=== PATIENT | female | born 1960 | race Caucasian/White ===

== ENCOUNTER 2019-01-27 13:42 | Inpatient (IN) | payer OTHER ==
[2019-01-27 15:21] VITALS: BMI 22.6
--- NOTE | 2019-01-27 16:31 | HP ---
COWS - Scale Resting Pulse: 0= [place] 80 or Below Sweatin= Chills/Flushing Restless Observation: 1= Difficult to Sit Still Pupil Size: 1= Pupils >than Normal Bone or Joint Aches: 2= Severe Diffuse Aches Runny Nose/ Eye Tearin= Runny Nose/Eyes GI Upset > 30mins: 2= Nausea/Diarrhea Tremor Observation: 2= Slight Tremor Visible Yawning Observation: 2= >3x During Session Anxiety or Irritability: 2=Irritable/Anxious Goose Flesh Skin: 0=Smooth Skin COWS Score: 15 CIWA Score - Admission Criteria [facility]AS Guidelines: Admission for Medically Managed Detox: Requires at least one of the followin. CIWA greater than 12 2. Seizures within the past 24 hours 3. Delirium tremens within the past 24 hours 4. Hallucinations within the past 24 hours 5. Acute intervention needed for co occurring medical disorder 6. Acute intervention needed for co occurring psychiatric disorder 7. Severe withdrawal that cannot be handled at a lower level of care (continued vomiting, continued diarrhea, abnormal vital signs) requiring intravenous medication and/or fluids 8. Admission ROS [facility] Chief Complaint: i need help to stop using heroin,on xanax prescription form i stop Allergies/Adverse Reactions: Allergies Allergy/AdvReac Type Severity Reaction Status Date / Time No Known Allergies Allergy Verified 01/27/19 17:57 History of Present Illness: this 58 years old female with heroin dependence,also on xanax 0.5 mg po bid prescription on i stop,previous admission in the past,last 10/14/16 to 10/18/16 keep relapsing hypertension,type 2 dm on diet control nicotine dependence 3 cigarette weight loss no significant period of sobriety anxiety plan for out patient program hepatitis c treated asthma Exam Limitations: No Limitations - Ebola screening Have you traveled outside of the country in the last 21 days: No (N) Have you had contact with anyone from an Ebola affected area: No Have you been sick,other than usual withdrawal symptoms: No Do you have a fever: No - Review of Systems Constitutional: Chills, Loss of Appetite, Malaise, Night Sweats, Changes in sleep, Weakness, Unintentional Wgt. Loss EENT: reports: Tearing, Nose Congestion Respiratory: reports: No Symptoms reported Cardiac: reports: No Symptoms Reported GI: reports: Diarrhea, Nausea, Poor Appetite, Abdominal cramping : reports: No Symptoms Reported Musculoskeletal: reports: Back Pain, Joint Pain, Muscle Pain, Joint Stiffness Integumentary: reports: Dryness Endocrine: reports: No Symptoms Reported Hematology: reports: No Symptoms Reported Psychiatric: reports: No Sypmtoms Reported, Judgement Intact, Mood/Affect Appropiate, Orientated x3, Agitated, Anxious, other (anxiety) Other Systems: Reviewed and Negative Patient History - Patient Medical History Hx Anemia: No Hx Asthma: Yes (on albuterol inhaler) Hx Chronic Obstructive Pulmonary Disease (COPD): No Hx Cancer: No Hx Cardiac Disorders: No Hx Congestive Heart Failure: No Hx Hypertension: No Hx Hypercholesterolemia: No Hx Pacemaker: No HX Cerebrovascular Accident: No Hx Seizures: No Hx Dementia: No Hx Diabetes: No Hx Gastrointestinal Disorders: No Hx Liver Disease: No Hx Genitourinary Disorders: No Hx Sexually Transmitted Disorders: No Hx Renal Disease (ESRD): No Hx Thyroid Disease: No Hx Human Immunodeficiency Virus (HIV): No (negative [id number] ) Hx Hepatitis C: Yes (treated) Hx Depression: Yes (anxiety) Hx Suicide Attempt: No Hx Bipolar Disorder: No Hx Schizophrenia: No Other Medical History: no suicidal,no homicidal - Patient Surgical History Past Surgical History: Yes Hx Neurologic Surgery: No Hx Cataract Extraction: No Hx Cardiac Surgery: No Hx Lung Surgery: No Hx Breast Surgery: No Hx Breast Biopsy: No Hx Abdominal Surgery: No Hx Appendectomy: No Hx Cholecystectomy: No Hx Genitourinary Surgery: No Hx Section: Yes (x 3,last 27,s/p hysterectomy in 2017 at [facility]) Hx Orthopedic Surgery: No Hx Hysterectomy: Yes (2009 for fibroid) Anesthesia Reaction: No - PPD History Previous Implant?: Yes Documented Results: Negative w/o proof Implanted On Prior R Admission?: Yes Date: 10/17/16 Results: 0 mm PPD to be Administered?: Yes - Reproductive History Patient is a Female of Child Bearing Age (11 -55 yrs old): No Last Menstrual Period: 10/14/10 Patient : No - Smoking Cessation Smoking history: Current every day smoker Have you smoked in the past 12 months: Yes Aproximately how many cigarettes per day: 3 Cigars Per Day: 0 Hx Chewing Tobacco Use: No Initiated information on smoking cessation: Yes 'Breaking Loose' booklet given: 01/27/19 - Substance & Tx. History Hx Alcohol Use: No Hx Substance Use: Yes Substance Use Type: Heroin, Tranquilizers Hx Substance Use Treatment: Yes ([facility] 12/14/15 to 10/18/16) - Substances Abused Heroin Route: Inhalation Frequency: Daily Amount used: 2 bags Age of first use: 27 Date of Last Use: 01/27/19 Alprazolam (Xanax) Route: Oral Frequency: Daily Amount used: 1 mg Age of first use: 58 Date of Last Use: 01/27/19 Family Disease History - Family Disease History Family Disease History: Heart Disease: Mother (,cva), Other: Father ( alcohol,), Mother Admission Physical Exam S - Vital Signs Vital Signs: Vital Signs - 24 hr 01/27/19 15:19 Temperature 98.7 F Pulse Rate 71 Respiratory 18 Rate Blood Pressure 143/88 - Physical General Appearance: Yes: Moderate Distress, Tremorous, Irritable, Sweating, Anxious HEENTM: Yes: Normal ENT Inspection, ZENA[place], Pharynx Normal Respiratory: Yes: Lungs Clear, Normal Breath Sounds, No Respiratory Distress, Other (asthma) Neck: Yes: Within Normal Limits, Supple, Trachea in good position Breast: Yes: Breast Exam Deferred Cardiology: Yes: Within Normal Limits, Regular Rhythm, Regular Rate, S1, S2 Abdominal: Yes: Within Normal Limits, Normal Bowel Sounds, Non Tender, Flat, Soft, Surgical Scar Genitourinary: Yes: Within Normal Limits Back: Yes: Muscle Spasm Musculoskeletal: Yes: full range of Motion, Back pain, Muscle Pain Extremities: Yes: Within Normal Limits, Normal Range of Motion, Tremors Neurological: Yes: 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 NML intact, Fully Oriented, Alert, Motor Strength 5/5 Integumentary: Yes: Dry Lymphatic: Yes: Within Normal Limits - Diagnostic (1) Opioid dependence with withdrawal Current Visit: No Status: Acute Comment: DUE TO THE QUANTITY OF HEROIN USE AND SEVERITY OF WITHDRAWAL SX MODIFY METHADONE REGIMEN (2) Weight decreased Current Visit: No Status: Acute (3) Asthma Current Visit: No Status: Chronic Qualifiers: Asthma severity: moderate persistent Asthma complication type: with status asthmaticus (4) Hepatitis C Current Visit: No Status: Chronic Qualifiers: Viral hepatitis chronicity: carrier Qualified Code(s): B18.2 - Chronic viral hepatitis C Comment: SCHEDULED FOR TREATMENT (5) Nicotine dependence Current Visit: No Status: Chronic Qualifiers: Nicotine product type: cigarettes Substance use status: uncomplicated Qualified Code(s): F17.210 - Nicotine dependence, cigarettes, uncomplicated (6) Syncope Current Visit: No Status: Chronic (7) Sedative hypnotic or anxiolytic dependence Current Visit: Yes Status: Acute (8) Dehydration Current Visit: Yes Status: Acute (9) History of hysterectomy for benign disease Current Visit: Yes Status: Acute (10) History of uterine fibroid Current Visit: Yes Status: Acute Cleared for Admission [facility] - Detox or Rehab [facility] Level of Care: Medically Managed Detox Regimen/Protocol: Methadone [facility] Breath Alcohol Content Breath Alcohol Content: 0 Urine Pregancy Test - Result Urine Test Results: Negative- NO Line Present Urine Drug Screen - Results Drug Screen Negative: No Urine Drug Screen Results: OPI-Opiates, BZO-Benzodiazepines, FEN-Fentanyl Inpatient Rehab Admission - Rehab Decision to Admit Inpatient rehab admission?: No
[2019-01-27] MEDS ORDERED: hydrOXYzine PAMOATE 25 MG CAPSULE (FP) PO PRN (16:55)
[2019-01-27] MEDS ORDERED: MAG HYDROX/AL HYDROX/SIMETH 30 ML UNIT-DOSE CUP PO PRN (16:55)
[2019-01-27] MEDS ORDERED: MENTHOL/PHENOL 1 EACH UD MM PRN (16:55)
[2019-01-27] MEDS ORDERED: MAGNESIUM CITRATE 300 ML BOTTLE PO PRN (16:55)
[2019-01-27] MEDS ORDERED: MAGNESIUM HYDROX 2400MG/30ML ORAL SUSPENSION 30 ML CUP PO PRN (16:55)
[2019-01-27] MEDS ORDERED: LOPERAMIDE HCL 2 MG CAPSULE PO PRN (16:55)
[2019-01-27] MEDS ORDERED: P-EPHED 60MG/TRIPROLIDI 2.5MG TABLET PO PRN (16:55)
[2019-01-27] MEDS ORDERED: METHADONE HCL 10 MG TABLET (FOR DETOX USE ONLY) PO ONE ×2 (16:55→23:00)
[2019-01-27] MEDS ORDERED: guaiFENesin/D-METHORPHAN HB 10 ML UNIT-DOSE CUPS PO PRN (16:55)
[2019-01-27] MEDS ORDERED: ACETAMINOPHEN 325 MG TABLET (FP) PO PRN (16:55)
[2019-01-27] MEDS ORDERED: IBUPROFEN 400 MG TABLET (FP) PO PRN (16:55)
[2019-01-27] MEDS ORDERED: ALBUTEROL SO4 8 GM HFA INHALER IH PRN (16:58)
[2019-01-27] MEDS: diazePAM 5 MG TABLET PO PRN (19:33)
[2019-01-27] MEDS: MELATONIN 5 MG TABLETS PO PRN (22:39)
[2019-01-27] MEDS: THIAMINE HCL 100 MG TABLET (FP) PO SCH (22:39)
[2019-01-28] MEDS ORDERED: METHADONE HCL 10 MG TABLET (FOR DETOX USE ONLY) PO ONE (10:00)
[2019-01-28] MEDS: PRENATAL VITAMINS W/ FOLIC ACID TABLET (FP) PO SCH (10:11)
[2019-01-28 10:17] LABS: ALBUMIN 3.5 g/dl (3.4-5.0); ALK PHOS 76 U/L (45-117); ANION GAP 7 MMOL/L (8-16); BILIRUBIN,TOTAL 0.7 mg/dL (0.2-1); BLOOD UREA NITROGEN 12 mg/dL (7-18); CALCIUM 9.2 mg/dL (8.5-10.1); CHLORIDE 103 mmol/L (98-107); CO2 30 mmol/L (21-32); CREATININE 0.7 mg/dL (0.55-1.3); GLUCOSE,RANDOM 91 mg/dL (74-106); POTASSIUM 4.1 mmol/L (3.5-5.1); SGOT/AST 13 U/L (15-37); SGPT/ALT 15 U/L (13-61); SODIUM 141 mmol/L (136-145)
[2019-01-28 10:32] LABS: HEMATOCRIT 37.8 % (32.4-45.2); HEMOGLOBIN 12.3 GM/dL (10.7-15.3); MCH 26.1 pg (25.7-33.7); MCHC 32.5 g/dl (32.0-36.0); MEAN CELL VOLUME 80.1 fl (80-96); MEAN PLT VOLUME 11.2 fl (7.5-11.1); PLATELET COUNT 155 K/MM3 (134-434); RBC 4.72 M/mm3 (3.60-5.2); RDW 14.5 % (11.6-15.6); WHITE BLOOD COUNT 6.1 K/mm3 (4.0-10.0)
--- NOTE | 2019-01-28 11:37 | PN ---
BHS COWS - Scale Resting Pulse: 0= [place] 80 or Below Sweatin= Chills/Flushing Restless Observation: 0= Sits Still Pupil Size: 1= Pupils >than Normal Bone or Joint Aches: 2= Severe Diffuse Aches Runny Nose/ Eye Tearin= Nasal Congestion GI Upset > 30mins: 1= Stomach Cramp Tremor Observation of Outstretched Hands: 2= Slight Tremor Visible Yawning Observation: 1= 1-2x During Session Anxiety or Irritability: 2=Irritable/Anxious Goose Flesh Skin: 0=Smooth Skin COWS Score: 11 BHS Progress Note (SOAP) Subjective: body ache anxiety restlessness trouble sleep at night hesitate engage with peers Objective: 01/28/19 11:36 Vital Signs Temperature 97.0 F L 01/28/19 09:12 Pulse Rate 69 01/28/19 09:12 Respiratory Rate 20 01/28/19 09:12 Blood Pressure 122/75 01/28/19 09:12 O2 Sat by Pulse Oximetry (%) Laboratory Last Values WBC 6.1 K/mm3 (4.0-10.0) 01/28/19 07:00 RBC 4.72 M/mm3 (3.60-5.2) 01/28/19 07:00 Hgb 12.3 GM/dL (10.7-15.3) 01/28/19 07:00 Hct 37.8 % (32.4-45.2) 01/28/19 07:00 MCV 80.1 fl (80-96) 01/28/19 07:00 MCH 26.1 pg (25.7-33.7) 01/28/19 07:00 MCHC 32.5 g/dl (32.0-36.0) 01/28/19 07:00 RDW 14.5 % (11.6-15.6) 01/28/19 07:00 Plt Count 155 K/MM3 (134-434) D 01/28/19 07:00 MPV 11.2 fl (7.5-11.1) H 01/28/19 07:00 Sodium 141 mmol/L (136-145) 01/28/19 07:00 Potassium 4.1 mmol/L (3.5-5.1) 01/28/19 07:00 Chloride 103 mmol/L (98-107) 01/28/19 07:00 Carbon Dioxide 30 mmol/L (21-32) 01/28/19 07:00 Anion Gap 7 MMOL/L (8-16) L 01/28/19 07:00 BUN 12 mg/dL (7-18) 01/28/19 07:00 Creatinine 0.7 mg/dL (0.55-1.3) 01/28/19 07:00 Creat Clearance w eGFR > 60 (>60) 01/28/19 07:00 POC Glucometer 97 UNITS (80-120) 01/28/19 06:09 Random Glucose 91 mg/dL (74-106) 01/28/19 07:00 Calcium 9.2 mg/dL (8.5-10.1) 01/28/19 07:00 Total Bilirubin 0.7 mg/dL (0.2-1) 01/28/19 07:00 AST 13 U/L (15-37) L 01/28/19 07:00 ALT 15 U/L (13-61) 01/28/19 07:00 Alkaline Phosphatase 76 U/L (45-117) 01/28/19 07:00 Total Protein 7.0 g/dl (6.4-8.2) 01/28/19 07:00 Albumin 3.5 g/dl (3.4-5.0) 01/28/19 07:00 RPR Titer Nonreactive (NONREACTIVE) 01/28/19 07:00 lab noted Assessment: 01/28/19 11:36 opiate withdrawal sx xanax 0.5 mg po bid last filled 30 days supply on 01/24/19 Plan: continue detox patient preferred return to xanax prescriber for aftercare
[2019-01-28] MEDS: THIAMINE HCL 100 MG TABLET (FP) PO SCH (22:04)
[2019-01-28] MEDS: MELATONIN 5 MG TABLETS PO PRN (22:05)
[2019-01-29] MEDS ORDERED: METHADONE HCL 5 MG TABLET (FOR DETOX USE ONLY) PO ONE (10:00)
[2019-01-29] MEDS: diazePAM 5 MG TABLET PO PRN ×2 (10:26→22:19)
[2019-01-29] MEDS: PRENATAL VITAMINS W/ FOLIC ACID TABLET (FP) PO SCH (10:26)
--- NOTE | 2019-01-29 11:28 | PN ---
BHS COWS - Scale Resting Pulse: 0= [place] 80 or Below Sweatin= Chills/Flushing Restless Observation: 0= Sits Still Pupil Size: 1= Pupils >than Normal Bone or Joint Aches: 1= Mild Discomfort Runny Nose/ Eye Tearin= Nasal Congestion GI Upset > 30mins: 1= Stomach Cramp Tremor Observation of Outstretched Hands: 1= Tremor [place], Not Seen Yawning Observation: 1= 1-2x During Session Anxiety or Irritability: 1=Feels Anxious/Irritable Goose Flesh Skin: 0=Smooth Skin COWS Score: 8 BHS Progress Note (SOAP) Subjective: body aches tremor sweating feeling weak and low energy patient is taking xanax 0.5 mg bid daily last filled 30 days supply on 01/14/19 Objective: 01/29/19 11:29 Vital Signs Temperature 97.8 F 01/29/19 09:17 Pulse Rate 65 01/29/19 09:17 Respiratory Rate 18 01/29/19 09:17 Blood Pressure 130/89 01/29/19 09:17 O2 Sat by Pulse Oximetry (%) Laboratory Last Values WBC 6.1 K/mm3 (4.0-10.0) 01/28/19 07:00 RBC 4.72 M/mm3 (3.60-5.2) 01/28/19 07:00 Hgb 12.3 GM/dL (10.7-15.3) 01/28/19 07:00 Hct 37.8 % (32.4-45.2) 01/28/19 07:00 MCV 80.1 fl (80-96) 01/28/19 07:00 MCH 26.1 pg (25.7-33.7) 01/28/19 07:00 MCHC 32.5 g/dl (32.0-36.0) 01/28/19 07:00 RDW 14.5 % (11.6-15.6) 01/28/19 07:00 Plt Count 155 K/MM3 (134-434) D 01/28/19 07:00 MPV 11.2 fl (7.5-11.1) H 01/28/19 07:00 Sodium 141 mmol/L (136-145) 01/28/19 07:00 Potassium 4.1 mmol/L (3.5-5.1) 01/28/19 07:00 Chloride 103 mmol/L (98-107) 01/28/19 07:00 Carbon Dioxide 30 mmol/L (21-32) 01/28/19 07:00 Anion Gap 7 MMOL/L (8-16) L 01/28/19 07:00 BUN 12 mg/dL (7-18) 01/28/19 07:00 Creatinine 0.7 mg/dL (0.55-1.3) 01/28/19 07:00 Creat Clearance w eGFR > 60 (>60) 01/28/19 07:00 POC Glucometer 126 UNITS (80-120) 01/29/19 07:30 Random Glucose 91 mg/dL (74-106) 01/28/19 07:00 Calcium 9.2 mg/dL (8.5-10.1) 01/28/19 07:00 Total Bilirubin 0.7 mg/dL (0.2-1) 01/28/19 07:00 AST 13 U/L (15-37) L 01/28/19 07:00 ALT 15 U/L (13-61) 01/28/19 07:00 Alkaline Phosphatase 76 U/L (45-117) 01/28/19 07:00 Total Protein 7.0 g/dl (6.4-8.2) 01/28/19 07:00 Albumin 3.5 g/dl (3.4-5.0) 01/28/19 07:00 RPR Titer Nonreactive (NONREACTIVE) 01/28/19 07:00 lab noted Assessment: 01/29/19 11:29 opiate withdrawal sx Plan: continue detox
[2019-01-29] MEDS: OSELTAMIVIR PHOSPHATE 75 MG CAPSULE PO SCH ×2 (15:59→22:19)
[2019-01-29] MEDS: THIAMINE HCL 100 MG TABLET (FP) PO SCH (22:19)
[2019-01-29] MEDS: MELATONIN 5 MG TABLETS PO PRN (22:21)
[2019-01-30] MEDS ORDERED: METHADONE HCL 5 MG TABLET (FOR DETOX USE ONLY) PO ONE (10:00)
[2019-01-30] MEDS: PRENATAL VITAMINS W/ FOLIC ACID TABLET (FP) PO SCH (10:12)
[2019-01-30] MEDS: OSELTAMIVIR PHOSPHATE 75 MG CAPSULE PO SCH ×2 (10:12→21:56)
--- NOTE | 2019-01-30 10:36 | PN ---
BHS COWS - Scale Resting Pulse: 0= [place] 80 or Below Sweatin= Chills/Flushing Restless Observation: 0= Sits Still Pupil Size: 0= Normal to Room Light Bone or Joint Aches: 1= Mild Discomfort Runny Nose/ Eye Tearin= None GI Upset > 30mins: 1= Stomach Cramp Tremor Observation of Outstretched Hands: 1= Tremor [place], Not Seen Yawning Observation: 1= 1-2x During Session Anxiety or Irritability: 1=Feels Anxious/Irritable Goose Flesh Skin: 0=Smooth Skin COWS Score: 6 BHS Progress Note (SOAP) Subjective: stuffy nose tremor sweating no coughing temp 98.0 stomach cramping but tolerate food and fluid well Objective: 01/30/19 10:31 Vital Signs Temperature 97.9 F 01/30/19 09:34 Pulse Rate 74 01/30/19 09:34 Respiratory Rate 18 01/30/19 09:34 Blood Pressure 126/79 01/30/19 09:34 O2 Sat by Pulse Oximetry (%) Laboratory Last Values WBC 6.1 K/mm3 (4.0-10.0) 01/28/19 07:00 RBC 4.72 M/mm3 (3.60-5.2) 01/28/19 07:00 Hgb 12.3 GM/dL (10.7-15.3) 01/28/19 07:00 Hct 37.8 % (32.4-45.2) 01/28/19 07:00 MCV 80.1 fl (80-96) 01/28/19 07:00 MCH 26.1 pg (25.7-33.7) 01/28/19 07:00 MCHC 32.5 g/dl (32.0-36.0) 01/28/19 07:00 RDW 14.5 % (11.6-15.6) 01/28/19 07:00 Plt Count 155 K/MM3 (134-434) D 01/28/19 07:00 MPV 11.2 fl (7.5-11.1) H 01/28/19 07:00 Sodium 141 mmol/L (136-145) 01/28/19 07:00 Potassium 4.1 mmol/L (3.5-5.1) 01/28/19 07:00 Chloride 103 mmol/L (98-107) 01/28/19 07:00 Carbon Dioxide 30 mmol/L (21-32) 01/28/19 07:00 Anion Gap 7 MMOL/L (8-16) L 01/28/19 07:00 BUN 12 mg/dL (7-18) 01/28/19 07:00 Creatinine 0.7 mg/dL (0.55-1.3) 01/28/19 07:00 Creat Clearance w eGFR > 60 (>60) 01/28/19 07:00 POC Glucometer 126 UNITS (80-120) 01/29/19 07:30 Random Glucose 91 mg/dL (74-106) 01/28/19 07:00 Calcium 9.2 mg/dL (8.5-10.1) 01/28/19 07:00 Total Bilirubin 0.7 mg/dL (0.2-1) 01/28/19 07:00 AST 13 U/L (15-37) L 01/28/19 07:00 ALT 15 U/L (13-61) 01/28/19 07:00 Alkaline Phosphatase 76 U/L (45-117) 01/28/19 07:00 Total Protein 7.0 g/dl (6.4-8.2) 01/28/19 07:00 Albumin 3.5 g/dl (3.4-5.0) 01/28/19 07:00 RPR Titer Nonreactive (NONREACTIVE) 01/28/19 07:00 lab noted Assessment: 01/30/19 10:36 opiate withdrawal sx Plan: continue detox observed patient ambulate on hallway social with peers in day room
[2019-01-30] MEDS: diazePAM 5 MG TABLET PO PRN (13:06)
[2019-01-30] MEDS: THIAMINE HCL 100 MG TABLET (FP) PO SCH (21:56)
[2019-01-30] MEDS: MELATONIN 5 MG TABLETS PO PRN (21:57)
[2019-01-31 09:33] VITALS: BP 135/92; PULSE 80; TEMP 97.3
[2019-01-31] MEDS ORDERED: METHADONE HCL 10 MG TABLET (FOR DETOX USE ONLY) PO ONE (10:00)
[2019-01-31] MEDS: PRENATAL VITAMINS W/ FOLIC ACID TABLET (FP) PO SCH (10:07)
[2019-01-31] MEDS: OSELTAMIVIR PHOSPHATE 75 MG CAPSULE PO SCH (10:07)
--- NOTE | 2019-01-31 15:50 | DS ---
[facility] Detox Discharge Summary Admission Date: 01/27/19 Discharge Date: 01/31/19 - History Present History: Opioid Dependence Additional Comments: 58 years old female admitted on 01/27/19 for opiate withdraawal stabilization vomited x 1 refused antinausea medication insists to leave the detox unit, refused to go the the ER for further GI evaluation patient stated that she lives near the hospital does not need the transportation patient insists to walk home and return to her xanax physician for medical and mental issues Pertinent Past History: keep medication list in wallet bring in medication list to aftercare appointment - Physical Exam Results Vital Signs: Vital Signs Temperature 97.3 F L 01/31/19 09:32 Pulse Rate 80 01/31/19 09:32 Respiratory Rate 18 01/31/19 09:32 Blood Pressure 135/92 01/31/19 09:32 O2 Sat by Pulse Oximetry (%) Pertinent Admission Physical Exam Findings: opiate withdrawal sx Laboratory Last Values WBC 6.1 K/mm3 (4.0-10.0) 01/28/19 07:00 RBC 4.72 M/mm3 (3.60-5.2) 01/28/19 07:00 Hgb 12.3 GM/dL (10.7-15.3) 01/28/19 07:00 Hct 37.8 % (32.4-45.2) 01/28/19 07:00 MCV 80.1 fl (80-96) 01/28/19 07:00 MCH 26.1 pg (25.7-33.7) 01/28/19 07:00 MCHC 32.5 g/dl (32.0-36.0) 01/28/19 07:00 RDW 14.5 % (11.6-15.6) 01/28/19 07:00 Plt Count 155 K/MM3 (134-434) D 01/28/19 07:00 MPV 11.2 fl (7.5-11.1) H 01/28/19 07:00 Sodium 141 mmol/L (136-145) 01/28/19 07:00 Potassium 4.1 mmol/L (3.5-5.1) 01/28/19 07:00 Chloride 103 mmol/L (98-107) 01/28/19 07:00 Carbon Dioxide 30 mmol/L (21-32) 01/28/19 07:00 Anion Gap 7 MMOL/L (8-16) L 01/28/19 07:00 BUN 12 mg/dL (7-18) 01/28/19 07:00 Creatinine 0.7 mg/dL (0.55-1.3) 01/28/19 07:00 Creat Clearance w eGFR > 60 (>60) 01/28/19 07:00 POC Glucometer 126 UNITS (80-120) 01/29/19 07:30 Random Glucose 91 mg/dL (74-106) 01/28/19 07:00 Calcium 9.2 mg/dL (8.5-10.1) 01/28/19 07:00 Total Bilirubin 0.7 mg/dL (0.2-1) 01/28/19 07:00 AST 13 U/L (15-37) L 01/28/19 07:00 ALT 15 U/L (13-61) 01/28/19 07:00 Alkaline Phosphatase 76 U/L (45-117) 01/28/19 07:00 Total Protein 7.0 g/dl (6.4-8.2) 01/28/19 07:00 Albumin 3.5 g/dl (3.4-5.0) 01/28/19 07:00 RPR Titer Nonreactive (NONREACTIVE) 01/28/19 07:00 lab noted - Treatment Hospital Course: Detox Protocol Followed, Responded well Patient has Accepted a Rehab Referral to: as per counselor arrangement - Medication Discharge Medications: Ambulatory Orders Zolpidem Tartrate [Ambien] 10 mg PO HS 12/25/14 Albuterol Sulfate Inhaler - [Ventolin HFA Inhaler -] 0 inh IH Q4H PRN #1 cartridge 12/26/14 Pantoprazole Sodium [Protonix -] 40 mg PO DAILY #30 tablet.ec 12/26/14 Thiamine HCl [Vitamin B1 -] 100 mg PO HS #30 tablet 12/26/14 cloNIDine HCL [Catapres -] 0.1 mg PO HS #30 tablet 12/26/14 Budesonide/Formeterol Fumarate [SYMBICORT 80/4.5mcg -] 1 puff IH BID 01/28/19 Naloxone HCl [Narcan] 4 mg NS ASDIR PRN 01/28/19 Oseltamivir Phosphate [Tamiflu -] 75 mg PO BID #7 capsule 01/31/19 - Diagnosis (1) Opioid dependence with withdrawal Status: Acute (2) Weight decreased Status: Acute (3) Asthma Status: Chronic Qualifiers: Asthma severity: mild Asthma persistence: intermittent Asthma complication type: with status asthmaticus Qualified Code(s): J45.22 - Mild intermittent asthma with status asthmaticus (4) GERD (gastroesophageal reflux disease) Status: Chronic Qualifiers: Esophagitis presence: without esophagitis Qualified Code(s): K21.9 - Gastro -esophageal reflux disease without esophagitis (5) Hepatitis C Status: Chronic Qualifiers: Viral hepatitis chronicity: carrier Qualified Code(s): B18.2 - Chronic viral hepatitis C (6) Nicotine dependence Status: Acute Qualifiers: Nicotine product type: cigarettes Substance use status: in withdrawal Qualified Code(s): F17.213 - Nicotine dependence, cigarettes, with withdrawal - AMA Did Patient Leave Against Medical Advice: Yes
[2019-02-01] MEDS ORDERED: METHADONE HCL 5 MG TABLET (FOR DETOX USE ONLY) PO ONE (06:00)
== END 2019-01-31 11:10 | disposition left against medical advice (07) | DRG 770 ==
LOC: YASAS 13:42 → Y3N 17:49
PROVIDERS: ADMIT Surgery; ATTEND Surgery
PROC: HZ2ZZZZ Detoxification Services for Substance Abuse Treatment (ICD-10-PCS; principal; 2019-01-27)
DX: F11.23 Opioid dependence with withdrawal (principal); F13.20 Sedative, hypnotic or anxiolytic dependence, uncomplicated; F17.213 Nicotine dependence, cigarettes, with withdrawal; J45.22 Mild intermittent asthma with status asthmaticus; K21.9 Gastro-esophageal reflux disease without esophagitis; B18.2 Chronic viral hepatitis C; E86.0 Dehydration; R63.4 Abnormal weight loss; Z68.22 Body mass index [BMI] 22.0-22.9, adult; Z90.710 Acquired absence of both cervix and uterus
CPT/HCPCS: 36415; 80053; 82962; 85027; 86593